=== PATIENT | female | born 1955 | race Caucasian/White ===

== ENCOUNTER 2023-08-19 10:03 | Day surgery (SDC) | payer MEDICARE, OTHER, SELFPAY ==
--- NOTE | 2023-08-18 13:45 | HP.PCM_ITS ---
History and Physical Date of Admission: 08/19/23 HPI: The patient is a 68 year old female presenting for pre-operative visit. She is scheduled for hysteroscoy D&C with possible polyp resection, for thickened endometrium and endometrial polyp and PMB on 08/19/23. Procedure discussed along with risks, benefits and complications. Other alternatives discussed for management. Consent form signed? Yes. ? ? PAST MEDICAL HISTORY PAST MEDICAL HISTORY Diagnosis Date ? ADD (attention deficit disorder) 2005 ? 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 Hypertension ? ? Hypertriglyceridemia ? ? Snoring ? ? ? PAST SURGICAL HISTORY PAST SURGICAL HISTORY Procedure Laterality Date ? DELIVERY ONLY ? 1983,1987 ? , low transverse ? CHOLECYSTECTOMY ? 2004 and 2016 ? and at [facility] ? COLONOSCOPY FLX DX W/COLLJ SPEC WHEN PFRMD ? 07/16/2016 ? Colonoscopy ? PAST SURGICAL HISTORY OF ? 1992 ? screw in right wrist ? PAST SURGICAL HISTORY OF Bilateral 08/25/2021 ? Shoulder surgery; metal in R, screws in L ? ? ? CURRENT MEDICATIONS Current Outpatient Medications Medication Sig Dispense Refill ? pantoprazole sodium (PROTONIX ORAL) Take by mouth. ? ? ? bevacizumab (AVASTIN) 25 mg/mL injection 1.25 mg by INTRAVITREAL route one time only. Received 08/12/2023 ? ? ? estradiol (ESTRACE) 0.01 % (0.1 mg/gram) vaginal cream Use 1 g vaginally as directed. Insert 1 gm vaginally every night x 14 nights then insert 1 gm vaginally twice weekly 42.5 g 4 ? calcium/magnesium/zinc (RUZTAKC-IKYPEZJBOY-KLUO) 333-133-5 mg tab ? labetalol (TRANDATE) 100 mg tablet Take by mouth. ? ? ? primidone (MYSOLINE) 50 mg tablet take ONE-HALF tablet by mouth at bedtime for 14 days then increase to twice a day for 2 (TWO) weeks then increase to 1 (ONE) full tablet twice a day ? ? ? losartan (COZAAR) 100 mg tablet Take 100 mg by mouth once daily. ? ? ? acetaminophen (TYLENOL) 500 mg tablet Take 500 mg by mouth every 8 hours as needed. ? ? ? L. acidophilus-L. rhamnosus 15 billion cell cap Take 1 capsule by mouth once daily. FLORAJEN WOMEN. If on antibiotic, take at least 1-2 hours before or after antibiotic. KEEP REFRIGERATED 30 capsule 11 ? hydroCHLOROthiazide (HYDRODIURIL, ESIDRIX) 12.5 mg tablet Take 1 tablet by mouth daily with breakfast. 90 tablet 1 ? diphenhydrAMINE (BENADRYL) 25 mg capsule Take 25 mg by mouth every 6 hours as needed. ? ? ? therapeutic multivitamin (THERA VITAMIN) tablet Take 1 tablet by mouth once daily. ? 0 ? Azdgjmgpesv-Xzpuvhmvm-Djc C-Mn 500-400 mg cap Take 1 capsule by mouth three times daily. ? 0 ? Lactobac no.41/Bifidobact no.7 (PROBIOTIC-10 ORAL) Take by mouth. (Patient not taking: Reported on 08/18/2023) ? ? ? No current facility-administered medications for this visit. ? ? ALLERGIES: Patient has no known allergies. ? PERSONAL HISTORY: SOCIAL HISTORY Social History ? Tobacco Use ? Smoking status: Never ? Smokeless tobacco: Never Vaping Use ? Vaping Use: Never used Substance Use Topics ? Alcohol use: No ? ? Comment: rarely ? Drug use: No ? FAMILY HISTORY: FAMILY HISTORY FAMILY HISTORY Problem Relation Age of Onset ? Hypertension Mother ? ? Osteoporosis Mother ? ? Psychiatry Mother ? ? Dementia ? other (phlebitis) Mother ? ? Heart Father 40 ? AMI ? Stroke Maternal Grandfather ? ? Cancer Paternal Grandfather ? ? prostate ? ? REVIEW OF SYMPTOMS: GENERAL: denies fevers or chills ENDOCRINOLOGY: has not been on steroids Cardiology : denies palpitations or chest pain Respiratory: denies SOB or cough Hematology: denies history of prolonged bleeding or easy bruising or VTE Allergy: Denies history of personal or family history of allergy to anesthesia ? PHYSICAL EXAMINATION: ? VITALS: Blood pressure 116/68, pulse 78, resp. rate 16, height 5' 0.5 (1.537 m), weight 146 lb (66.2 kg), SpO2 99 %. ? GENERAL: The patient is well nourished, well hydrated in no acute distress. , The patient is oriented to time, place, and person. NECK: Supple. No lynphadenopathy, normal thyroid, no thyromegaly. LUNGS: Clear to auscultation bilaterally. no wheezes, rhonchi or rales HEART: Regular rate and rhythm, Normal heart sounds, and No murmurs or gallops ? IMPRESSION: PMB, thickened endometrium, endometrial polyp ? PLAN: The risks/benefits/alternatives and personal involved for the planned hysteroscopy D&C with possible polyp were reviewed with the patient. Her questions were answered to her satisfaction and she desires to proceed. Consent was signed. I reviewed with her postop instructions and expectations. ? ? I have reviewed and updated past medical and surgical history, medications and allergies Assessment & Plan Assessment/Plan (1) PMB (postmenopausal bleeding): (2) Endometrial polyp: (3) Endometrial thickening on ultrasound:
[2023-08-19] VITALS (12 sets, daily range): BP systolic 122–169; BP diastolic 52–80; PULSE 59–80; RESP 14–16; TEMP 36.1–36.6; O2SAT 92–100; BMI 28.0
[2023-08-19] MEDS: Lactated Ringers 1,000 ML 15 ML IV (10:41)
[2023-08-19] MEDS: Acetaminophen 500 MG Tablet 1000 MG PO (10:42)
--- NOTE | 2023-08-19 11:25 | EMB_PTH ---
PATIENT: GISELLA CARRIZALES LOC: [facility] [place] U#:[id number] AGE/SX: 68/F ROOM: RE08/19/[address]: Dr. Ammy Claudio MD : [id number] BED: DIS: 08/19/2023 SPEC #: [id number] RECD: 08/19/23 14:57 STATUS: MADDISON ANDRES #: [id number] ADI: 08/19/23 11:[address]: Ammy Claudio DEPT: SURGICAL PATHOLOGY RECD BY: Sheila Shaw ENTERED: 08/20/23 07:58 SP TYPE: ENDOM BX/C OTHR DR: Dr. Mikhail Anderson MD Tissues: Endometrium, NOS Procedures: Surgery Specimen Level IV HEADER OPERATION: Hysteroscopy, D & C Symphion PRE-OP DIAGNOSIS: Postmenopausal bleeding, endometrial biopsy, endometrial thickening TISSUE SUBMITTED: Endometrial curettings MICROSCOPIC DIAGNOSIS Endometrial curettings: Inactive endometrium. Numerous fragments of myometrium. See comment. LICHA:jasiel 08/23/2023 COMMENT The specimen predominantly consists of fragments of myometrium. Clinical correlation and appropriate follow up are necessary. MICROSCOPIC DESCRIPTION Slides are reviewed. GROSS DESCRIPTION Received in fixative is one container labeled with the patient's name and designated endometrial curettings. The specimen consists of multiple irregular fragments of johnson, indurated tissue that in aggregate measure 3.0 x 2.5 x 0.3 cm. The specimen is totally submitted in one cassette. / LICHA:jasiel 08/20/2023 TC:5 CPT: 06333
--- NOTE | 2023-08-19 13:27 | PCM.DC ---
Discharge Instructions Diet Discharge Diet: No restrictions Activity May resume sexual activity in: 2 weeks Lifting Restrictions: none Dressing / Incision Call your doctor if your incision/area has: Sudden Increased Bleeding and Foul Smelling Discharge Call your doctor if you observe: Fever of 101 or Higher and Using more than 1 pad per hour (for 2 hrs in a row) Follow Up Care Please Follow Up With: Ammy Claudio MD When: YOu do not need a postop appointment. We will call you with your pathology next week. Call [phone] to make an appointment or with questions or send a [phone] Media message Test Results: Test results from this visit will be discussed in further detail at your follow-up appointment, if applicable. Discharge Plan Admission Primary Reason for Your Visit: Hysteroscopy D&C Attending Provider: Ammy Claudio Primary Care Provider: Mikhail Anderson Instructions Patient Instructions: Hysteroscopy Discharge Orders/Prescriptions Prescriptions: No Action hydrochlorothiazide 12.5 mg capsule 12.5 mg PO DAILY losartan 100 mg tablet 100 mg PO DAILY labetalol 100 mg tablet 100 mg PO BID primidone 50 mg tablet 50 mg PO BID krill oil 500 mg capsule 750 mg PO DAILY PreserVision AREDS 4,296 mcg-226 mg-90 mg capsule 1 cap PO DAILY multivitamin [Daily Multi-Vitamin] Tablet 1 tab PO DAILY calcium 220 mg capsule 400 mg PO DAILY Glucosamine-Chondroitin Complx Capsule 2 cap PO DAILY Referrals / Follow Up: Mikhail Anderson MD [Primary Care Provider] - Disposition Disposition (needs filled in before D/C Order can be placed): Home, Self Care
[2023-08-19] MEDS: Vasopressin 20 UNITS/ML Vial (13:32)
--- NOTE | 2023-08-19 13:57 | PCM.OPRPT ---
Problems Associated Problem List Diagnoses (1) Endometrial thickening on ultrasound: (2) Endometrial polyp: (3) PMB (postmenopausal bleeding): Report of Operation Date of Procedure: 08/19/23 Pre-Operative Diagnosis: pmb, thickened endometrium on US, endometrial polyp Post-Operative Diagnosis: same Surgery/Procedure Performed:: Hysteroscopy D&C with symphion device Description of Surgical Findings:: ragged thin endometrium, normal cervix and endocervical canal Surgeon: Ammy Claudio reprographics technician: Otoniel Stacy Type of Anesthesia: MAC Anesthesiologist: Isabella Jolly Special Medications: 8 cc of dilute vasopressin solution Specimen's removed: endometrial curettings Drains: none Estimated Blood Loss (mL): 10 Fluids Replaced: 600 Description of Procedure: The patient was taken to the OR where she was prepped and draped in dorsal lithotomy position. The weighted speculum was placed in the vagina and the anterior lip of the cervix was grasped with a single-tooth tenaculum. A paracervical block was administered with dilute vasopressin solution. The cervix was dilated serially with Hegar dilators. The Symphion hysteroscope was placed into the uterine cavity and the above findings were noted. Bilateral tubal ostia [were] identified. The Symphion resection device was ready and inserted. The pressure catheter was set to 100 mmHg. A visual sharp curettage was done of the uterine cavity. The instruments were removed from the vagina. The specimen was handed off and sent to pathology. All sponge and needle counts were correct. Vaginal sweep was performed by me. The patient was awakened and taken to the recovery room in stable condition. Hysteroscopic fluid deficit 700 cc of normal saline Grafts/Implants Used: none Procedure Start Time: 13:32 Procedure Stop Time: 13:41 Complications none Admit VTE Documentation VTE Present on Admission: No VTE Mechan Device Prophylaxis: SCD's VTE Pharm Prophylaxis ordered?: No Reason prophylaxis not ordered:: Procedure Not Indicated
== END 2023-08-19 16:09 | disposition home or self-care (01) ==
LOC: SDC 10:10 → AC 10:12
PROVIDERS: PCP Family Medicine; Referring Provider Obstetrics & Gynecology; Visit Provider Obstetrics & Gynecology
PROC: 0UB98ZZ Excision of Uterus, Via Natural or Artificial Opening Endoscopic (ICD-10-PCS; CPT 58558; principal; 2023-08-19 11:10)
DX: N95.0 Postmenopausal bleeding (principal); N84.0 Polyp of corpus uteri; I10 Essential (primary) hypertension; R73.03 Prediabetes; Z79.899 Other long term (current) drug therapy
CPT/HCPCS: 58558; 00952; 88305; J7120; J2405